=== PATIENT | female | born 1990 | race Caucasian/White ===

== ENCOUNTER 2021-07-15 15:38 | Emergency (ER) | payer OTHER ==
[2021-07-15] MEDS ORDERED: Amoxicillin/Potassium Clav 875 MG TAB ONE (16:40)
== END 2021-07-15 16:40 | disposition home or self-care (01) ==
LOC: CSHERS 15:38
DX: K04.7 Periapical abscess without sinus (principal); I10 Essential (primary) hypertension; G40.909 Epilepsy, unspecified, not intractable, without status epilepticus
CPT/HCPCS: 99283

== ENCOUNTER 2023-03-19 00:21 | Inpatient (IN) | payer OTHER, SELFPAY ==
[2023-03-19 02:10] LABS: #Basophils 0.1 10x3/uL (0.0-0.2); #Eosinphils 0.1 10x3/uL (0.0-0.5); #Neutrophils 10.1 10x3/uL (1.5-8.4); %Basophils 0.4 % (0.0-2.0); %Eosinophils 0.5 % (0.0-6.0); %Lymphocytes 6.9 % (18.0-47.0); %Monocytes 7.9 % (0.0-10.0); %Neutrophils 83.4 % (40.0-75.0); Hemoglobin 13.2 g/dL (12.0-15.5); Mean Corpuscular HGB CONC 33.8 g/dL (32.0-36.0); Mean Corpuscular Hemoglobin 30.2 pg (27.0-33.0); Mean Corpuscular Volume 89.5 fl (81.6-98.3); Mean Platelet Volume 9.1 fl (7.4-10.4); Platelet Count 228 10x3/uL (150-450); RBC Distribution Width 14.2 % (11.5-14.5); Red Blood Cell (RBC) Count 4.37 10x6/uL (3.90-5.03); White Blood Cell (WBC) Count 12.1 10x3/uL (3.5-10.5)
[2023-03-19 02:57] LABS: ALT (SGPT) 51 U/L (8-55); AST (SGOT) 55 U/L (5-34); Albumin 3.8 g/dL (3.5-5.0); Alkaline Phosphatase 112 U/L (40-110); Anion Gap 23 mmol/L (10-20); BUN (Urea Nitrogen) 12 mg/dL (7.0-18.7); Calc. Creatinine Clearance 0 mL/min (70-130); Calcium 9.2 mg/dL (7.8-10.44); Carbon Dioxide 20 mmol/L (22-29); Chloride 94 mmol/L (98-107); Estimated GFR 116; Globulin 3.3 g/dL (2.4-3.5); Glucose 127 mg/dL (70-105); Magnesium 1.8 mg/dL (1.6-2.6); Potassium 3.1 mmol/L (3.5-5.1); Protein, Total 7.1 g/dL (6.0-8.3); Sodium 134 mmol/L (136-145)
[2023-03-19] MEDS ORDERED: Multivitamins, Adult 10 ML, Folic Acid 1 MG, Thiamine HCl 100 MG in Dextrose 5 %-0.45 %... IV SCH (03:00)
[2023-03-19 03:26] LABS: Lipase 3016 U/L (8-78)
[2023-03-19] MEDS ORDERED: Lorazepam 1 MG TAB PO PRN (04:03)
[2023-03-19] MEDS ORDERED: Ondansetron ODT 4 MG TAB PO PRN (04:03)
[2023-03-19] MEDS ORDERED: Lorazepam 2 MG/ML VIAL IM PRN (04:03)
[2023-03-19] MEDS ORDERED: traZODone HCl 50 MG TAB PO PRN (04:09)
[2023-03-19 04:15] LABS: Phosphorus 2.1 mg/dL (2.3-4.7)
[2023-03-19] MEDS ORDERED: Electrolyte Replacement Protocol 1 EACH FS PRN (04:15)
[2023-03-19] MEDS ORDERED: Morphine 4 MG/ML VIAL ONE ×2 (04:30→04:41)
[2023-03-19] MEDS ORDERED: Potassium Chloride 20 MEQ/100 ML PREMIX BAG ONE ×2 (04:30→04:41)
[2023-03-19] MEDS: Lorazepam 1 MG TAB PO SCH ×4 (05:04→21:46)
[2023-03-19] MEDS: Sodium Chloride 0.9% 1,000 ML IV SCH ×3 (05:04→21:46)
[2023-03-19] MEDS ORDERED: Lorazepam 1 MG TAB ONE (05:05)
[2023-03-19 05:07] LABS: Bilirubin Neg (Negative); Blood, Urine 10 (Negative); Clarity Slightly Cloudy (Clear); Glucose, Urine (Dipstick) Normal (Negative); Ketone, Urine 150 mg/dL (Negative); Leukocyte 25 (Negative); Nitrite Negative (Negative); Protein, Urine (Dipstick) 30 mg/dl (Neg-Trace)
[2023-03-19 05:09] LABS: Pregnancy Test - Urine (BHCG) Negative (Negative); Pregu Control Background? CLEAR/WHITE (CLR/WHITE); Pregu Control Bar Appear? YES (CONTROL BAR)
[2023-03-19 05:12] LABS: Bacteria/HPF None Seen HPF (None Seen); CAUTI Indications for Culture Pelvic or flank pain; Squamous Epithelial 0-3 HPF (0-3); WBC/HPF 0-3 HPF (0-3)
[2023-03-19 05:13] LABS: Urine Culture Reflex No No
[2023-03-19] MEDS ORDERED: Magnesium 2 GM/50 ML(in water) 2 GM in Premix Bag 1 BAG IVPB SCH (09:00)
[2023-03-19] MEDS ORDERED: Magnesium 2 GM/50 ML BAG (IN WATER) ONE (10:00)
[2023-03-19] MEDS: Multivit, Therapeutic 1 TAB PO SCH (10:03)
[2023-03-19] MEDS: Folic Acid 1 MG TAB PO SCH (10:03)
[2023-03-19] MEDS ORDERED: Iopamidol 300 61% 100 ML VIAL FS ONE (11:11)
[2023-03-19] MEDS: Morphine 4 MG/ML VIAL SLOW IVP PRN ×2 (15:06→22:22)
[2023-03-20] MEDS: Morphine 4 MG/ML VIAL SLOW IVP PRN ×5 (03:06→21:11)
[2023-03-20] MEDS ORDERED: Lorazepam 1 MG TAB PO PRN (04:03)
[2023-03-20 04:57] LABS: #Basophils 0.1 10x3/uL (0.0-0.2); #Eosinphils 0.2 10x3/uL (0.0-0.5); #Neutrophils 7.2 10x3/uL (1.5-8.4); %Basophils 0.6 % (0.0-2.0); %Eosinophils 2.1 % (0.0-6.0); %Lymphocytes 8.9 % (18.0-47.0); %Monocytes 10.5 % (0.0-10.0); %Neutrophils 76.5 % (40.0-75.0); Hemoglobin 12.5 g/dL (12.0-15.5); Mean Corpuscular HGB CONC 32.4 g/dL (32.0-36.0); Mean Corpuscular Hemoglobin 29.4 pg (27.0-33.0); Mean Corpuscular Volume 90.8 fl (81.6-98.3); Mean Platelet Volume 9.6 fl (7.4-10.4); Platelet Count 218 10x3/uL (150-450); RBC Distribution Width 14.2 % (11.5-14.5); Red Blood Cell (RBC) Count 4.25 10x6/uL (3.90-5.03); White Blood Cell (WBC) Count 9.4 10x3/uL (3.5-10.5)
[2023-03-20] MEDS: Lorazepam 1 MG TAB PO SCH ×4 (04:57→21:13)
[2023-03-20] MEDS: Acetaminophen 325 MG TAB PO SCH ×4 (04:57→21:12)
[2023-03-20 05:13] LABS: Phosphorus 1.7 mg/dL (2.3-4.7)
[2023-03-20 05:16] LABS: ALT (SGPT) 36 U/L (8-55); AST (SGOT) 39 U/L (5-34); Albumin 3.2 g/dL (3.5-5.0); Alkaline Phosphatase 102 U/L (40-110); Anion Gap 18 mmol/L (10-20); BUN (Urea Nitrogen) 5 mg/dL (7.0-18.7); Bilirubin, Total 0.9 mg/dL (0.2-1.2); Calc. Creatinine Clearance 233 mL/min (70-130); Calcium 8.4 mg/dL (7.8-10.44); Carbon Dioxide 23 mmol/L (22-29); Chloride 97 mmol/L (98-107); Estimated GFR 120; Globulin 2.9 g/dL (2.4-3.5); Glucose 109 mg/dL (70-105); Magnesium 1.9 mg/dL (1.6-2.6); Potassium 3.1 mmol/L (3.5-5.1); Protein, Total 6.1 g/dL (6.0-8.3); Sodium 135 mmol/L (136-145)
[2023-03-20 05:26] LABS: Lipase 1444 U/L (8-78)
[2023-03-20] MEDS: Sodium Chloride 0.9% 1,000 ML IV SCH ×4 (07:48→21:10)
[2023-03-20] MEDS ORDERED: Potassium Chloride 20 MEQ TAB PO SCH (08:00)
[2023-03-20] MEDS: Folic Acid 1 MG TAB PO SCH (08:18)
[2023-03-20] MEDS: PHOS-NAK 1 PKT PACK PO SCH ×2 (08:18→12:14)
[2023-03-20] MEDS: Multivit, Therapeutic 1 TAB PO SCH (08:18)
[2023-03-20] MEDS ORDERED: cloNIDine 0.1mg/24 Hour PATCH TD SCH (09:00)
[2023-03-20] MEDS ORDERED: Magnesium 2 GM/50 ML(in water) 2 GM in Premix Bag 1 BAG IVPB SCH (09:00)
[2023-03-21] MEDS: Morphine 4 MG/ML VIAL SLOW IVP PRN ×4 (03:17→20:59)
[2023-03-21] MEDS ORDERED: Lorazepam 1 MG TAB PO PRN (04:03)
[2023-03-21 04:55] LABS: ALT (SGPT) 35 U/L (8-55); AST (SGOT) 41 U/L (5-34); Albumin 3.1 g/dL (3.5-5.0); Alkaline Phosphatase 109 U/L (40-110); Anion Gap 17 mmol/L (10-20); BUN (Urea Nitrogen) Less than 4 mg/dL (7.0-18.7); Bilirubin, Total 0.8 mg/dL (0.2-1.2); Calc. Creatinine Clearance 233 mL/min (70-130); Calcium 8.4 mg/dL (7.8-10.44); Carbon Dioxide 20 mmol/L (22-29); Chloride 101 mmol/L (98-107); Estimated GFR 120; Glucose 100 mg/dL (70-105); Lipase 902 U/L (8-78); Phosphorus 2.7 mg/dL (2.3-4.7); Potassium 3.9 mmol/L (3.5-5.1); Protein, Total 6.1 g/dL (6.0-8.3); Sodium 134 mmol/L (136-145)
[2023-03-21] MEDS: Sodium Chloride 0.9% 1,000 ML IV SCH ×3 (05:58→16:54)
[2023-03-21] MEDS: Acetaminophen 325 MG TAB PO SCH ×4 (05:58→21:50)
[2023-03-21] MEDS: Lorazepam 0.5 MG TAB PO SCH ×4 (06:01→23:30)
[2023-03-21] MEDS ORDERED: Magnesium 2 GM/50 ML(in water) 2 GM in Premix Bag 1 BAG IVPB SCH (08:00)
[2023-03-21] MEDS: Folic Acid 1 MG TAB PO SCH (08:35)
[2023-03-21] MEDS: Multivit, Therapeutic 1 TAB PO SCH (08:35)
[2023-03-21] MEDS: Ondansetron PF 4 MG/2 ML Vial IVP PRN (08:42)
[2023-03-21] MEDS ORDERED: Polyethylene Glycol 3350 17 GM Packet PO SCH (11:00)
[2023-03-21] MEDS: Senokot S 8.6-50 MG TAB PO SCH (20:58)
[2023-03-22] MEDS: Sodium Chloride 0.9% 1,000 ML IV SCH ×2 (00:54→06:16)
[2023-03-22] MEDS: Morphine 4 MG/ML VIAL SLOW IVP PRN ×4 (01:02→20:32)
[2023-03-22 04:02] LABS: ALT (SGPT) 33 U/L (8-55); AST (SGOT) 41 U/L (5-34); Albumin 2.9 g/dL (3.5-5.0); Alkaline Phosphatase 117 U/L (40-110); Anion Gap 14 mmol/L (10-20); BUN (Urea Nitrogen) Less than 4 mg/dL (7.0-18.7); Bilirubin, Total 0.8 mg/dL (0.2-1.2); Calc. Creatinine Clearance 249 mL/min (70-130); Calcium 8.2 mg/dL (7.8-10.44); Carbon Dioxide 26 mmol/L (22-29); Chloride 102 mmol/L (98-107); Estimated GFR 122; Globulin 2.8 g/dL (2.4-3.5); Glucose 96 mg/dL (70-105); Lipase 390 U/L (8-78); Protein, Total 5.7 g/dL (6.0-8.3); Sodium 139 mmol/L (136-145)
[2023-03-22] MEDS: Acetaminophen 325 MG TAB PO SCH ×4 (04:04→20:32)
[2023-03-22 04:06] VITALS: BMI 36.9
[2023-03-22] MEDS: Lorazepam 0.5 MG TAB PO SCH (05:39)
[2023-03-22] MEDS: Thiamine 100 MG TAB PO SCH (05:39)
[2023-03-22] MEDS ORDERED: Potassium Chloride 20 MEQ TAB PO SCH ×2 (08:00→12:00)
[2023-03-22] MEDS: Folic Acid 1 MG TAB PO SCH (09:03)
[2023-03-22] MEDS: Multivit, Therapeutic 1 TAB PO SCH (09:03)
[2023-03-22] MEDS: Senokot S 8.6-50 MG TAB PO SCH ×2 (09:16→20:33)
[2023-03-22] MEDS: Ondansetron PF 4 MG/2 ML Vial IVP PRN (12:57)
[2023-03-22 13:32] LABS: Potassium 3.5 mmol/L (3.5-5.1)
[2023-03-22] MEDS: NS 0.9% w/ 20 MEQ KCL 1,000 ML/1,000 ML BAG IV SCH (16:23)
[2023-03-23] MEDS: Morphine 4 MG/ML VIAL SLOW IVP PRN ×3 (01:42→10:57)
[2023-03-23] MEDS: NS 0.9% w/ 20 MEQ KCL 1,000 ML/1,000 ML BAG IV SCH ×2 (02:01→10:18)
[2023-03-23] MEDS: Thiamine 100 MG TAB PO SCH (05:23)
[2023-03-23] MEDS: Acetaminophen 325 MG TAB PO SCH ×2 (05:23→09:17)
[2023-03-23] MEDS: Lorazepam 0.5 MG TAB PO PRN ×2 (05:23→10:57)
[2023-03-23 06:32] LABS: Anion Gap 14 mmol/L (10-20); BUN (Urea Nitrogen) Less than 4 mg/dL (7.0-18.7); Calc. Creatinine Clearance 253 mL/min (70-130); Calcium 8.3 mg/dL (7.8-10.44); Carbon Dioxide 24 mmol/L (22-29); Chloride 104 mmol/L (98-107); Estimated GFR 123; Glucose 89 mg/dL (70-105); Magnesium 1.8 mg/dL (1.6-2.6); Potassium 3.8 mmol/L (3.5-5.1); Sodium 138 mmol/L (136-145)
[2023-03-23] MEDS ORDERED: Magnesium 2 GM/50 ML(in water) 2 GM in Premix Bag 1 BAG IVPB SCH (09:00)
[2023-03-23] MEDS: Multivit, Therapeutic 1 TAB PO SCH (09:18)
[2023-03-23] MEDS: Folic Acid 1 MG TAB PO SCH (09:18)
[2023-03-23] MEDS: Senokot S 8.6-50 MG TAB PO SCH (10:17)
[2023-03-23 12:50] VITALS: BP 136/87; TEMP 98.4
== END 2023-03-23 16:42 | DRG 439 ==
LOC: CSHERS 00:21 → CSHERHOLD 04:35 → CSHTELE 08:49
PROVIDERS: ADMIT Family Medicine; ATTEND Internal Medicine
DX: K85.20 Alcohol induced acute pancreatitis without necrosis or infection (principal); E87.1 Hypo-osmolality and hyponatremia; I10 Essential (primary) hypertension; G40.909 Epilepsy, unspecified, not intractable, without status epilepticus; F10.20 Alcohol dependence, uncomplicated; F41.9 Anxiety disorder, unspecified; Z87.891 Personal history of nicotine dependence; Z98.890 Other specified postprocedural states; Z91.013 Allergy to seafood; Z88.1 Allergy status to other antibiotic agents; Z71.41 Alcohol abuse counseling and surveillance of alcoholic; Z88.8 Allergy status to other drugs, medicaments and biological substances
CPT/HCPCS: 36415; 36416; 74177; 80048; 80053; 81001; 81025; 83605; 83690; 83735; 84100; 85025; 93005; 94760; 94762; 96365; 96366; 96375; J1650; J2270; J2405; J3411; J3475; J3480; J7042; J7050; Q9967